=== PATIENT | female | born 1985 | race Caucasian/White ===

== ENCOUNTER 2022-06-11 06:56 | Inpatient (IN) | payer OTHER ==
[~2022-06-11] VITALS: Ht 157.5 cm; Wt 65.9 kg
[2022-06-11 07:35] LABS: BASO % 0.4 % (0.0-2.0); EOS % 0.2 % (0.0-4.0); GRAN # 3.9 K/mm3 (1.4-6.5); GRAN % 85.6 % (42.2-75.2); HEMATOCRIT 45.4 % (37.0-47.0); LYMPH # 0.4 K/mm3 (1.2-3.4); LYMPH % 8.1 % (20.0-51.0); MEAN CELL VOLUME 103 fl (80.0-100.0); MEAN CORPUSCULAR HEMOGLOBIN 34 pg (27-31); MEAN CORPUSCULAR HGB CONC 33 g/dl (33.0-37.0); MEAN PLATELET VOLUME 8.9 fl (7.4-10.4); MONO # 0.3 K/mm3 (0.1-0.6); MONO % 5.5 % (1.7-9.3); PLATELET COUNT 127 K/mm3 (130-400); RED BLOOD COUNT 4.39 M/mm3 (4.10-5.30); REDCELL DISTRIBUTION WIDTH-CV 13.6 % (11.5-14.5)
[2022-06-11 07:55] LABS: ALBUMIN 4.9 gm/dL (3.5-5.0); BILIRUBIN,TOTAL 1.3 mg/dL (0.2-1.2); C-REACTIVE PROTEIN 0.64 mg/dL (0.00-0.50); CALCIUM 9.3 mg/dL (8.4-10.2); CREATININE, serum 1.07 mg/dL (0.57-1.11); POTASSIUM 4.9 mmol/L (3.5-4.5); TOTAL PROTEIN 9.4 gm/dL (6.2-8.1)
[2022-06-11 09:01] LABS: COLLECTION METHOD CLEAN CATCH
[2022-06-11 09:18] LABS: MUCOUS Present (NOT PRESENT); PH 5.5 (5.0-8.5); SQUAMOUS EPITHELIAL 0-2 /hpf (0-10); URINE APPEARANCE Clear (CLEAR/HAZY); URINE BACTERIA None Seen /hpf (NONE SEEN); URINE COLOR Yellow (YELLOW); URINE PROTEIN(semi-quant) 2+ (NEGATIVE); URINE RBC 0-2 /hpf (0-2)
[2022-06-11 09:19] LABS: URINE BLOOD 1+ (NEGATIVE); URINE GLUCOSE Negative (NEGATIVE); URINE KETONE 3+ (NEGATIVE); URINE NITRATE Negative (NEGATIVE); URINE UROBILINOGEN 0.2 E.U/dL (0.2-1.0)
[2022-06-11] MEDS ORDERED: ADDERALL XR25 MG (13:22)
[2022-06-11] MEDS ORDERED: LITHIUM 60600 MG/CAP (13:22)
[2022-06-11 14:07] LABS: TRICYCLIC ANTIDEPRESS URINE NEGATIVE
[2022-06-11 14:24] VITALS: BP 139/91; PULSE 96; TEMP 100.1
--- NOTE | 2022-06-11 15:17 | NUR ---
supervisor fur floor worker met with patient and discussed options for care of patient's two m[place] alma dogs. Patient states she has thought of options and doesn't feel any of them are favorable. Patient states she also needs to be at work tomorrow. Worker collaborated with physician and nursing regarding the above information. Patient's spouse is deployed and patient states she doesn't know of any supports.
[2022-06-11 19:54] VITALS: BP 141/93; PULSE 103; TEMP 98.6
[2022-06-11 23:49] VITALS: BP 124/66; PULSE 80; TEMP 98.7
[2022-06-12 04:08] VITALS: BP 137/96; PULSE 62; TEMP 98.4
[2022-06-12 06:07] LABS: MEAN CELL VOLUME 101 fl (80.0-100.0); MEAN CORPUSCULAR HGB CONC 34 g/dl (33.0-37.0); MEAN PLATELET VOLUME 9.8 fl (7.4-10.4); PLATELET COUNT 103 K/mm3 (130-400); RED BLOOD COUNT 3.52 M/mm3 (4.10-5.30); REDCELL DISTRIBUTION WIDTH-CV 13.7 % (11.5-14.5)
[2022-06-12 06:09] LABS: HEMATOCRIT 35.7 % (37.0-47.0); MEAN CORPUSCULAR HEMOGLOBIN 34 pg (27-31)
[2022-06-12 06:30] LABS: ALBUMIN 3.6 gm/dL (3.5-5.0); CALCIUM 8.5 mg/dL (8.4-10.2); CREATININE, serum 0.68 mg/dL (0.57-1.11); MAGNESIUM 1.6 mg/dL (1.6-2.6); PHOSPHOROUS 1.2 mg/dL (2.3-4.7); POTASSIUM 3.3 mmol/L (3.5-4.5)
[2022-06-12 07:24] VITALS: BP 138/96; PULSE 89; TEMP 99
[2022-06-12 07:33] LABS: BAND 3 % (0-10); EOSINOPHIL 5 % (0-4); LYMPHOCYTE 26 % (20.0-51.0); METAMYELOCYTE 1 % (0-0); NEUTROPHILS 61 % (42.0-75.2); PLATELET ESTIMATE NORMAL (NORMAL); TEAR DROP CELLS 1+
--- NOTE | 2022-06-12 08:14 | NUR ---
Pt assessment complete. Pt is sitting up in bed upon entry, she is A/O x4. Her breathing is even and unlabored on RA. Pt denies SOB. No pain at this time, reports "soreness" to abdomen. Reports one bout of diarrhea this am, before breakfast. Denies N/V. Pt states she is not wanting to do the CT of her abdomen as she feels better and is ready to go home to her "boys" (dogs). States she would not feel like leaving if she still felt bad. No needs at this time. Call light within reach.
[2022-06-12] MEDS ORDERED: FOLIC ACID 11 MG/TA1 PO (10:19)
[2022-06-12] MEDS ORDERED: THIAMINE 1100 MG/TAB PO (10:19)
[2022-06-12] MEDS ORDERED: DUO-KAPS1 CAP PO (10:19)
[2022-06-12 10:21] VITALS: BP 133/93; PULSE 91; TEMP 98.6
[2022-06-12] MEDS ORDERED: SODIUM BICARBO650 MG PO (10:21)
[2022-06-12] MEDS ORDERED: K-PHOS NEUTRAL250 M1 PO (10:22)
--- NOTE | 2022-06-12 10:30 | NUR ---
Patient is sitting in bed, alert and oriented x 4, VSS, CIWA SCORE 1. Denies nausea or vomiting, tolerating food, receiving NS at 75 ml/hr. Telemetry in place, NSR. k replacement per orders. Assessmente completed. Continue monitoring.
--- NOTE | 2022-06-12 11:45 | NUR ---
Patient was provided with discharge information. Pt states she does not want us to make an appointment with her PCP, she will do it herself. All questions answered. IV site and Telemetry were discontinued. Pt will be takene to to ED entrance accompanied by staff.
== END 2022-06-12 11:54 | disposition home or self-care (01) | DRG 897 ==
LOC: COL.ER 06:56 → MEDICAL 12:41
PROVIDERS: Family Medicine; ADMIT Internal Medicine
DX: F10.139 Alcohol abuse with withdrawal, unspecified (principal); E87.2 Acidosis; F90.9 Attention-deficit hyperactivity disorder, unspecified type; F31.9 Bipolar disorder, unspecified; Z20.822 Contact with and (suspected) exposure to COVID-19; I10 Essential (primary) hypertension; E86.0 Dehydration; K70.10 Alcoholic hepatitis without ascites; Z87.891 Personal history of nicotine dependence; Z28.310 Unvaccinated for COVID-19
CPT/HCPCS: C9113; J1644; J2060; J2405; J2543; J2550; J3475; J7030; J7120

== ENCOUNTER 2023-11-27 07:46 | Inpatient (IN) | payer OTHER ==
[2023-11-27] VITALS (462 sets, daily range): BP systolic 114–135; BP diastolic 77–97; PULSE 103–112; TEMP 98.9–99.9; O2SAT 86–100
[~2023-11-27] VITALS: Ht 157.5 cm; Wt 71.0 kg
[~2023-11-27 07:46] MED LIST: ADDERALL XR25 MG; DUO-KAPS1 CAP PO; FOLIC ACID 11 MG/TA1 PO; K-PHOS NEUTRAL250 M1 PO; LITHIUM 60600 MG/CAP; SODIUM BICARBO650 MG PO; THIAMINE 1100 MG/TAB PO
--- NOTE | 2023-11-27 09:20 | NUR ---
Pt arrives to ICU 6 from [facility] via EMS at this time. 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 Pt had witnessed seizure at home lasting 2-3 minutes then proceeded to [facility] ED with . Pt had another witnessed seizure at around 0600 this AM in their ED; also lasted approx. 2-3 minutes. Upon arrival pt is alert and oriented but drowsy and very unsteady; unable to move self from stretcher to bed. Pt tachycardic with at rate the the 110's. BP, O2, and RR all WNL. Pt has clothes, cellphone, ID, and chapstick in her possession. All items placed in closet except for cellphone; pt would like to keep it at the bedside. Pt's Subhash aware of pt being transfered her and will arrive shortly. Report was received from LEO Albright from [facility] ED prior to pt's arrival.
[2023-11-27 11:09] LABS: COLLECTION METHOD CLEAN CATCH
[2023-11-27 11:15] LABS: BASO % 0.8 % (0.0-2.0); GRAN % 75.5 % (42.2-75.2); HEMATOCRIT 31.4 % (37.0-47.0); HEMOGLOBIN 10.4 g/dl (12.5-16.0); LYMPH # 0.3 K/mm3 (1.2-3.4); LYMPH % 12.4 % (20.0-51.0); MEAN CELL VOLUME 92 fl (80.0-100.0); MEAN CORPUSCULAR HEMOGLOBIN 30 pg (27-31); MEAN CORPUSCULAR HGB CONC 33 g/dl (33.0-37.0); MEAN PLATELET VOLUME 10.1 fl (7.4-10.4); MONO # 0.3 K/mm3 (0.1-0.6); MONO % 10.5 % (1.7-9.3); PLATELET COUNT 132 K/mm3 (130-400); RED BLOOD COUNT 3.42 M/mm3 (4.10-5.30)
[2023-11-27 11:26] LABS: URINE APPEARANCE Clear (CLEAR/HAZY); URINE COLOR Yellow (YELLOW)
[2023-11-27 11:27] LABS: MUCOUS Present (NOT PRESENT); PH 7.5 (5.0-8.5); SQUAMOUS EPITHELIAL 0-2 /hpf (0-10); URINE BACTERIA Rare /hpf (NONE SEEN); URINE BLOOD Negative (NEGATIVE); URINE GLUCOSE Negative (NEGATIVE); URINE KETONE TRACE (NEGATIVE); URINE NITRATE Negative (NEGATIVE); URINE PROTEIN(semi-quant) Negative (NEGATIVE); URINE RBC None Seen /hpf (0-2); URINE UROBILINOGEN 0.2 E.U/dL (0.2-1.0); URINE WBC 0-2 /hpf (0-2)
[2023-11-27 11:29] LABS: ALANINE AMINOTRANSFERASE 56 U/L (0-55); ALKALINE PHOSPHATASE 55 U/L (40-150); ANION GAP 11 mmol/L (7-16); AST,SGOT 145 U/L (5-34); BLOOD UREA NITROGEN < 5 mg/dL (7-19); CARBON DIOXIDE 19 mmol/L (22-29); CHLORIDE 106 mmol/L (98-107); CREATININE, serum 0.59 mg/dL (0.57-1.11); GLUCOSE 91 mg/dL (70-99); MAGNESIUM 1.8 mg/dL (1.6-2.6); POTASSIUM 3.2 mmol/L (3.5-4.5); SODIUM 136 mmol/L (136-145); TOTAL PROTEIN 6.6 gm/dL (6.2-8.1)
[2023-11-27 11:32] LABS: TRICYCLIC ANTIDEPRESS URINE NEGATIVE (NEGATIVE)
[2023-11-27 12:04] LABS: INR 1.2 (0.8-3.0); PROTHROMBIN TIME 12.9 SECONDS (9.7-12.8)
[2023-11-27 12:07] LABS: PARTIAL THROMBOPLASTIN TIME 30.3 SECONDS (26.0-37.0)
--- NOTE | 2023-11-27 19:15 | NUR ---
RECEIVED REPORT FROM ASHLYN.
--- NOTE | 2023-11-27 20:17 | NUR ---
PATIENT RESTING QUIETLY IN BED. SHE IS DROWSY BUT ALERT AND ORIENTED. PATIENT IS SLOW TO RESPOND TO QUESTIONS AND VERBAL CUES. ASSISTED TO COMMODE WITH SBA; PATIENT'S GAIT WAS WOBBLY BUT SHE OTHERWISE TOLERATED ACTIVITY WELL. ALL VITALS WITHIN NORMAL LIMITS. NO FURTHER NEEDS NOTED AT THIS TIME.
[2023-11-28] VITALS (58 sets, daily range): BP systolic 99–127; BP diastolic 70–96; PULSE 94–98; TEMP 98–99.8; O2SAT 88–100
[2023-11-28 04:29] LABS: BASO % 0.5 % (0.0-2.0); EOS % 1.4 % (0.0-4.0); GRAN # 1.3 K/mm3 (1.4-6.5); GRAN % 59.8 % (42.2-75.2); LYMPH # 0.5 K/mm3 (1.2-3.4); LYMPH % 24.8 % (20.0-51.0); MEAN CELL VOLUME 96 fl (80.0-100.0); MEAN CORPUSCULAR HGB CONC 31 g/dl (33.0-37.0); MEAN PLATELET VOLUME 10.5 fl (7.4-10.4); MONO # 0.3 K/mm3 (0.1-0.6); MONO % 12.6 % (1.7-9.3); PLATELET COUNT 119 K/mm3 (130-400); RED BLOOD COUNT 3.14 M/mm3 (4.10-5.30); REDCELL DISTRIBUTION WIDTH-CV 16.3 % (11.5-14.5)
[2023-11-28 04:34] LABS: HEMATOCRIT 30.1 % (37.0-47.0); HEMOGLOBIN 9.4 g/dl (12.5-16.0); MEAN CORPUSCULAR HEMOGLOBIN 30 pg (27-31)
[2023-11-28 04:43] LABS: ANION GAP 10 mmol/L (7-16); BLOOD UREA NITROGEN < 5 mg/dL (7-19); CARBON DIOXIDE 18 mmol/L (22-29); CHLORIDE 109 mmol/L (98-107); CREATININE, serum 0.63 mg/dL (0.57-1.11); GLUCOSE 113 mg/dL (70-99); MAGNESIUM 1.8 mg/dL (1.6-2.6); POTASSIUM 3.3 mmol/L (3.5-4.5); SODIUM 137 mmol/L (136-145)
--- NOTE | 2023-11-28 07:00 | NUR ---
REPORT RECEIVED FROM LEO OLSON. PT RESTING IN BED, VSS. SEIZURE PADS IN PLACE. NS INFUSING TO PERIPHERAL IV IN R AC ORDERED. PT IS ALERT AND ORIENTED, USES CALL LIGHT FOR NEEDS.
--- NOTE | 2023-11-28 11:51 | NUR ---
decontamination worker inquired about substance use and reason for coming in. Patient reports, "If they would have kept you up to date, I used to drink 12 a day and now I'm down to 2. I have a tracker on my phone." SW stated she can provide some resources for local substance use if she would like. Pt declined this and said she is fine. Discharge Plan: Home
[2023-11-28] MEDS ORDERED: FOLIC ACID 11 MG/TA1 PO (11:59)
[2023-11-28] MEDS ORDERED: NATURE'S BLEND100 M2 PO (11:59)
[2023-11-28] MEDS ORDERED: KEPPRA 500MG500 MG PO (11:59)
--- NOTE | 2023-11-28 12:35 | NUR ---
Social Work Student Kaylah met with pt to discuss discharge planning. Pt reports she lives in [place] with her Subhash [phone]. Pt reports she has no PCP and obtains her medications from [facility] with no difficulties. Pt states she is indpendent with [employer] and does not use any DME. Pt reports she does not have a DPOA. SW student asked if she wants to make one and pt declined. Pt sees someone at [facility], but reports she does not know who she is assigned. She uses Telehealth services when needed. PT signed off on patient. Discharge Plan: Home with
--- NOTE | 2023-11-28 16:35 | NUR ---
PT REMAINED STABLE THROUGHOUT THE DAY AND DID NOT REQUIRE PRN ATIVAN. PT ABLE TO EAT MEALS AND TAKE PO FLUIDS WITHOUT N/V. PT EVALUATED AND CLEARED FOR DISCHARGE BY PHYSICAL THERAPY. PERIPHERAL IV'S TO BILATERAL AC'S DISCONTINUED. PT GIVEN D/C PACKET AND INSTRUCTED TO FOLLOW UP W/ PCP NEXT WEEK AND TO TAKE KEPPRA DIRECTED. PT D/C'D HOME W/ AND ESCORTED TO [facility] BY NURSE VIA AT 1550.
== END 2023-11-28 15:50 | disposition home or self-care (01) | DRG 897 ==
LOC: IMCU 07:46 → ICU 09:56
PROVIDERS: ADMIT Internal Medicine
DX: F10.139 Alcohol abuse with withdrawal, unspecified (principal); G40.909 Epilepsy, unspecified, not intractable, without status epilepticus; F31.9 Bipolar disorder, unspecified; D72.819 Decreased white blood cell count, unspecified; D64.9 Anemia, unspecified; Z87.891 Personal history of nicotine dependence
CPT/HCPCS: J1953; J7030